=== PATIENT | female | born 1950 | race Caucasian/White ===

== ENCOUNTER → 2016-06-26 | Outpatient (CLI) | payer OTHER ==
[~2016-06-26] MED LIST: ASPIRIN81 MG PO; CALCIUM500 MG PO; COLACE100 MG PO; FLAX OIL1000 MG PO; MAGNESIUM250 M1 PO; MELATONIN5 M1 SL; NASONEX0.05 MG/AC NAS; OMEPRAZOLE20 MG PO; PAXIL40 MG PO; PERCOCET 325 MG1 TA2 PO; POTASSIUM CHELA99 MG PO; VITAMIN B1250 MCG PO; VITAMIN C1000 M1 PO; XANAX0.5 MG PO; [UNRECOGNIZED DRUG - OTHER] PO
== END | disposition home or self-care (01) ==
LOC: MAMMO 11:58
DX: Z12.31 Encounter for screening mammogram for malignant neoplasm of breast (principal); M81.0 Age-related osteoporosis without current pathological fracture; Z78.0 Asymptomatic menopausal state

== ENCOUNTER → 2017-02-14 | Outpatient (CLI) | payer OTHER ==
[2017-02-14 09:42] LABS: BASO % 0.6 % (0.0-1.0); EOS # 0.4 10*3/uL (0.0-0.4); EOS % 8.1 % (1.0-4.0); HEMATOCRIT 40.9 % (37.0-47.0); LYMPH % 41.1 % (27.0-41.0); MEAN CELL VOLUME 87.2 fl (81.0-99.0); MEAN CORPUSCULAR HGB 27.7 pg (27.0-31.0); MEAN CORPUSCULAR HGB CONC 31.8 g/dl (33.0-37.0); MEAN PLATELET VOLUME 9.3 fl (9.6-12.3); MONO # 0.4 10*3/uL (0.1-1.0); MONO % 7.9 % (3.0-9.0); NEUT % 42.1 % (47.0-73.0); PLATELET COUNT AUTOMATED 308 10*3/uL (130-400); RED BLOOD COUNT 4.69 10*6/uL (4.10-5.10); RED CELL DISTRI WIDTH 13.2 % (0-14.5); WHITE BLOOD COUNT 4.8 10*3/uL (4.8-10.8)
[2017-02-14 09:46] LABS: BUN 23 mg/dl (7-24); CHLORIDE 104 mmol/L (98-107); CREATININE 0.89 mg/dL (0.55-1.02); POTASSIUM 4.6 mmol/L (3.5-5.1); SODIUM 139 mmol/L (136-145)
== END | disposition home or self-care (01) ==
LOC: LAB 09:02
PROVIDERS: Internal Medicine
DX: Z13.220 Encounter for screening for lipoid disorders (principal); Z13.21 Encounter for screening for nutritional disorder; Z13.1 Encounter for screening for diabetes mellitus; R53.81 Other malaise

== ENCOUNTER → 2017-09-25 | Day surgery (SDC) | payer OTHER ==
[~2017-09-25] VITALS: Ht 167.6 cm; Wt 77.1 kg
--- NOTE | ~2017-09-25 | O ---
[place], [place] OPERATIVE NOTE NAME: KOKO CHRISTIANSEN UNIT #: [id number] ROOM: DOCTOR: NEVAEH CANNON MD BIRTHDATE: [birth year] DOS: 09/25/2017 GASTROENDOSCOPIC REPORT The patient has presented with severe constipation, undergoing investigation. The patient on Colace 2 tablets a day. She has still difficulty with stooling. PROCEDURE: Today's procedure part of investigation is colonoscopy. PREMEDICATION: Propofol. SCOPE: Olympus folding colonoscope 10L video. REPORT: After putting the patient in left lateral position and application of lubricant to the scope, the scope was introduced. Thereafter, under direct visualization, I advanced through the length of colon and some tortuosity of sigmoid colon experienced. However, this overcame. Base of the cecum explored, appendiceal orifice identified, photographed. Air was suctioned out. The patient was extubated, tolerated the procedure well. IMPRESSION: Tortuous sigmoid colon, possible mechanical hand ring of the stool movement. PLAN AND DISCUSSION: We are going to consider MiraLax to be utilized in addition to correction of diet with high fiber fruit. ACTIVITY: Ad jason. FOLLOWUP: Routinely with you in office, p.r.n. visit with us in [facility]. Follow-up colonoscopy in 10 years unless patient has symptoms for which follow-up should be sooner. Thank you very much indeed. [place], [place] OPERATIVE NOTE NAME: KOKO CHRISTIANSEN UNIT #: [id number] ROOM: DOCTOR: NEVAEH CANNON MD BIRTHDATE: [birth year] NEVAEH CANNON MD CM:OPRECORD:OPERATIVE NOTE [id number] NEVAEH CANNON MD 10/05/17 1742 interface
--- NOTE | ~2017-09-25 | O ---
[place], [place] OPERATIVE NOTE NAME: KOKO CHRISTIANSEN UNIT #: [id number] ROOM: DOCTOR: NEVAEH CANNON MD BIRTHDATE: [birth year] DOS: 09/25/2017 GASTROENDOSCOPIC REPORT INDICATIONS: This is a 67-year-old patient who presented with chief complaint of epigastric distress, dyspepsia, history of severe constipation, stool softeners, Prilosec and Paxil. PAST SURGICAL HISTORY: Cholecystectomy, tonsillectomy, appendectomy. FAMILY HISTORY: Brother with colonic carcinoma. SOCIAL HISTORY: Nonsmoker, nonalcohol consumer. PROCEDURE: Today's procedure part of investigation is colonoscopy and panendoscopy. PREMEDICATION: Versed and propofol. SCOPE: Olympus forward-viewing gastroscope Q10 video. REPORT: After putting the patient in left lateral position and application of lubricant to the scope, the scope was introduced; thereafter, under direct visualization, advanced through the length of esophagus without difficulty into gastric pouch. 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 Biopsy obtained. Small hiatal hernia noticed. Gastric pouch was entered. Gastritis seen. Antral biopsy obtained. Duodenal bulb, second and third part within normal limits. The patient extubated, tolerated procedure well. IMPRESSION: Short segment Khalil esophagus, hiatal hernia, gastritis, status post biopsy. PLAN AND DISCUSSION: Omeprazole 20 mg 1 daily and antireflux elevation of the head of the bed 6 inches all time. Awaiting biopsy results. Furthermore, we are going to proceed with colonoscopic evaluation for constipation. [place], [place] OPERATIVE NOTE NAME: KOKO CHRISTIANSEN UNIT #: [id number] ROOM: DOCTOR: NEVAEH CANNON MD BIRTHDATE: [birth year] NEVAEH CANNON MD CM:OPRECORD:OPERATIVE NOTE 1143 1230 NEVAEH CANNON MD 09/25/17 1228 interface
[2017-09-25 09:45] VITALS: BP 142/70
[2017-09-25 11:34] VITALS: BP 111/59
[2017-09-25 11:45] VITALS: BP 106/57
[2017-09-25 12:00] VITALS: BP 114/58
== END | disposition home or self-care (01) ==
LOC: SDC 09-22 08:00
DX: K29.50 Unspecified chronic gastritis without bleeding (principal); K63.89 Other specified diseases of intestine; K22.8 Other specified diseases of esophagus; K22.70 Barrett's esophagus without dysplasia; K44.9 Diaphragmatic hernia without obstruction or gangrene; F41.9 Anxiety disorder, unspecified; F32.9 Major depressive disorder, single episode, unspecified; Z90.49 Acquired absence of other specified parts of digestive tract

== ENCOUNTER → 2022-08-25 | Outpatient (CLI) | payer OTHER ==
[2022-08-25 11:18] LABS: BASO % 0.7 % (0.0-1.0); EOS # 0.7 10*3/uL (0.0-0.4); EOS % 12.1 % (1.0-4.0); HEMATOCRIT 42.4 % (37.0-47.0); LYMPH # 2.5 10*3/uL (1.3-4.4); LYMPH % 39.9 % (27.0-41.0); MEAN CORPUSCULAR HGB 27.8 pg (27.0-31.0); MEAN CORPUSCULAR HGB CONC 30.9 g/dl (33.0-37.0); MEAN PLATELET VOLUME 8.6 fl (9.6-12.3); MONO # 0.4 10*3/uL (0.1-1.0); MONO % 6.5 % (3.0-9.0); NEUT # 2.5 10*3/uL (2.3-7.9); NEUT % 40.6 % (47.0-73.0); PLATELET COUNT AUTOMATED 341 10*3/uL (130-400); RED BLOOD COUNT 4.71 10*6/uL (4.10-5.10); WHITE BLOOD COUNT 6.1 10*3/uL (4.8-10.8)
[2022-08-25 11:43] LABS: ALKALINE PHOSPHATASE 82 U/L (46-116); BUN 19 mg/dl (9-23); CHLORIDE 101 mmol/L (98-107); CHOLESTEROL 242 mg/dL (<200); FREE T4 0.92 ng/dl (0.89-1.76); LDL CHOLESTEROL 139 mg/dL (9-159); POTASSIUM 4.2 mmol/L (3.4-5.1); SGPT/ALT 18 U/L (10-49); THYROID STIM HORMONE (HS) 1.497 uIU/ml (0.550-4.780); TOTAL PROTEIN 7.4 gm/dL (6.0-8.0); TRIGLYCERIDES 231 mg/dl (<150)
[2022-08-25 11:45] LABS: VITAMIN D, 25-HYDROXY 54.8 ng/mL (30-100)
== END | disposition home or self-care (01) ==
LOC: LAB 10:47
PROVIDERS: ATTEND Internal Medicine
DX: Z13.0 Encounter for screening for diseases of the blood and blood-forming organs and certain disorders involving the immune mechanism (principal); Z13.1 Encounter for screening for diabetes mellitus; Z13.21 Encounter for screening for nutritional disorder; Z13.220 Encounter for screening for lipoid disorders; Z13.228 Encounter for screening for other metabolic disorders; Z13.29 Encounter for screening for other suspected endocrine disorder; Z13.6 Encounter for screening for cardiovascular disorders; Z13.89 Encounter for screening for other disorder; Z13.9 Encounter for screening, unspecified; I10 Essential (primary) hypertension; E78.2 Mixed hyperlipidemia; E11.9 Type 2 diabetes mellitus without complications; E55.9 Vitamin D deficiency, unspecified; E03.9 Hypothyroidism, unspecified

== ENCOUNTER → 2022-08-28 | Outpatient (CLI) | payer OTHER | END | disposition home or self-care (01) | LOC: LAB 12:27 | PROVIDERS: ATTEND Internal Medicine | DX: J98.11 Atelectasis (principal); J98.4 Other disorders of lung; M47.814 Spondylosis without myelopathy or radiculopathy, thoracic region; M41.84 Other forms of scoliosis, thoracic region; M43.8X4 Other specified deforming dorsopathies, thoracic region ==

== ENCOUNTER → 2022-10-13 | Outpatient (CLI) | payer OTHER | END | disposition home or self-care (01) | LOC: RAD 09-26 10:00 | PROVIDERS: ATTEND Internal Medicine | DX: Z78.0 Asymptomatic menopausal state (principal) ==

== ENCOUNTER 2022-11-05 09:56 | Inpatient (IN) | payer OTHER ==
[~2022-11-05] VITALS: Ht 165.1 cm; Wt 78.7 kg
[~2022-11-05 09:56] MED LIST changes: -OMEPRAZOLE20 MG PO; +OMEPRAZOLE40 MG PO
[2022-11-05 10:02] VITALS: BP 134/63
[2022-11-05] MEDS ORDERED: SYMB80 INH (10:05)
[2022-11-05 10:49] LABS: BASO % 0.6 % (0.0-1.0); EOS # 0.8 10*3/uL (0.0-0.4); EOS % 11.6 % (1.0-4.0); HEMATOCRIT 44.4 % (37.0-47.0); LYMPH # 2.4 10*3/uL (1.3-4.4); LYMPH % 37.5 % (27.0-41.0); MEAN CELL VOLUME 85.2 fl (81.0-99.0); MEAN CORPUSCULAR HGB 27.8 pg (27.0-31.0); MEAN CORPUSCULAR HGB CONC 32.7 g/dl (33.0-37.0); MEAN PLATELET VOLUME 8.8 fl (9.6-12.3); MONO # 0.5 10*3/uL (0.1-1.0); NEUT # 2.7 10*3/uL (2.3-7.9); NEUT % 42.1 % (47.0-73.0); PLATELET COUNT AUTOMATED 355 10*3/uL (130-400); RED BLOOD COUNT 5.21 10*6/uL (4.10-5.10); RED CELL DISTRI WIDTH 13.3 % (0-14.5); WHITE BLOOD COUNT 6.5 10*3/uL (4.8-10.8)
[2022-11-05 11:02] LABS: INTERNATIONAL NORM RATIO 1.1 (2.0-3.5)
[2022-11-05 11:13] LABS: ALKALINE PHOSPHATASE 87 U/L (46-116); BUN 15 mg/dl (9-23); CHLORIDE 105 mmol/L (98-107); LIPASE 42 U/L (12-53); POTASSIUM 3.8 mmol/L (3.4-5.1); SGPT/ALT 21 U/L (10-49); TOTAL PROTEIN 7.5 gm/dL (6.0-8.0)
[2022-11-05 19:17] VITALS: BP 131/65
[2022-11-05 20:06] VITALS: BP 134/65
[2022-11-05 23:45] LABS: BILIRUBIN Negative (Negative); BLOOD Negative (Negative); CLARITY Clear (Clear); COLOR Yellow (Yellow); GLUCOSE Negative (Negative); KETONE Negative (Negative); LEUKO ESTERASE Negative (Negative); NITRITE Negative (Negative); PH 6.5 (4.5-8.0); SPECIFIC GRAVITY <= 1.005 (1.001-1.030); UROBILINOGEN 0.2 E.U./dl (0.0-1.0)
[2022-11-06] VITALS: BP 130/59; BP 132/69
[2022-11-06 00:02] LABS: WBC 0-2 wbc/hpf (0-5)
[2022-11-06 05:57] LABS: BUN 15 mg/dl (9-23); CHLORIDE 107 mmol/L (98-107)
[2022-11-06 06:18] LABS: BASO % 0.5 % (0.0-1.0); EOS # 0.8 10*3/uL (0.0-0.4); HEMATOCRIT 42.1 % (37.0-47.0); LYMPH # 2.6 10*3/uL (1.3-4.4); LYMPH % 39.5 % (27.0-41.0); MEAN CELL VOLUME 87.7 fl (81.0-99.0); MEAN CORPUSCULAR HGB 27.9 pg (27.0-31.0); MEAN CORPUSCULAR HGB CONC 31.8 g/dl (33.0-37.0); MONO # 0.6 10*3/uL (0.1-1.0); MONO % 9.1 % (3.0-9.0); NEUT # 2.5 10*3/uL (2.3-7.9); NEUT % 38.9 % (47.0-73.0); PLATELET COUNT AUTOMATED 329 10*3/uL (130-400); RED CELL DISTRI WIDTH 13.3 % (0-14.5); WHITE BLOOD COUNT 6.5 10*3/uL (4.8-10.8)
[2022-11-06 08:00] VITALS: BP 117/52
[2022-11-06 12:00] VITALS: BP 125/54
[2022-11-06 16:00] VITALS: BP 107/61
[2022-11-06 20:00] VITALS: BP 145/62
[2022-11-07] VITALS: BP 126/50
[2022-11-07 08:00] VITALS: BP 133/52
[2022-11-07 12:00] VITALS: BP 127/48
== END 2022-11-07 18:02 | disposition home or self-care (01) | DRG 392 ==
LOC: ED 09:56 → EDHOLD 14:10 → 4E 14:10
PROVIDERS: Emergency Medicine; ADMIT Internal Medicine; ATTEND Internal Medicine
DX: A08.4 Viral intestinal infection, unspecified (principal); F33.0 Major depressive disorder, recurrent, mild; J45.41 Moderate persistent asthma with (acute) exacerbation; F41.1 Generalized anxiety disorder; F51.01 Primary insomnia; E86.0 Dehydration; Z88.1 Allergy status to other antibiotic agents; Z83.3 Family history of diabetes mellitus; Z90.49 Acquired absence of other specified parts of digestive tract; Z98.42 Cataract extraction status, left eye

== ENCOUNTER → 2022-12-10 | Outpatient (CLI) | payer OTHER ==
[~2022-12-10] MED LIST changes: +SYMB80 INH
[2022-12-10 11:56] LABS: BASO % 0.7 % (0.0-1.0); EOS # 0.3 10*3/uL (0.0-0.4); EOS % 4.6 % (1.0-4.0); HEMATOCRIT 40.8 % (37.0-47.0); LYMPH # 2.5 10*3/uL (1.3-4.4); LYMPH % 43.3 % (27.0-41.0); MEAN CELL VOLUME 88.7 fl (81.0-99.0); MEAN CORPUSCULAR HGB 27.8 pg (27.0-31.0); MEAN CORPUSCULAR HGB CONC 31.4 g/dl (33.0-37.0); MEAN PLATELET VOLUME 8.6 fl (9.6-12.3); MONO # 0.4 10*3/uL (0.1-1.0); MONO % 7.2 % (3.0-9.0); NEUT # 2.5 10*3/uL (2.3-7.9); PLATELET COUNT AUTOMATED 319 10*3/uL (130-400); RED CELL DISTRI WIDTH 14.1 % (0-14.5); WHITE BLOOD COUNT 5.7 10*3/uL (4.8-10.8)
== END | disposition home or self-care (01) ==
LOC: LAB 11:22
PROVIDERS: ATTEND Nurse Practitioner Family
DX: Z01.812 Encounter for preprocedural laboratory examination (principal); F33.1 Major depressive disorder, recurrent, moderate

== ENCOUNTER → 2023-01-28 | Outpatient (CLI) | payer OTHER | END | disposition home or self-care (01) | LOC: MAMMO 07:30 | PROVIDERS: ATTEND Internal Medicine | DX: Z12.31 Encounter for screening mammogram for malignant neoplasm of breast (principal) ==

== ENCOUNTER 2023-07-07 11:29 | Emergency (ER) | payer OTHER ==
[~2023-07-07] VITALS: Ht 165.1 cm; Wt 78.0 kg
[2023-07-07 12:01] LABS: BASO % 0.6 % (0.0-1.0); EOS # 0.4 10*3/uL (0.0-0.4); EOS % 6.1 % (1.0-4.0); HEMATOCRIT 44.7 % (37.0-47.0); LYMPH % 27.9 % (27.0-41.0); MEAN CELL VOLUME 88.7 fl (81.0-99.0); MEAN CORPUSCULAR HGB 27.2 pg (27.0-31.0); MEAN CORPUSCULAR HGB CONC 30.6 g/dl (33.0-37.0); MEAN PLATELET VOLUME 8.5 fl (9.6-12.3); MONO # 0.5 10*3/uL (0.1-1.0); MONO % 6.9 % (3.0-9.0); NEUT # 4.3 10*3/uL (2.3-7.9); NEUT % 58.4 % (47.0-73.0); PLATELET COUNT AUTOMATED 357 10*3/uL (130-400); RED BLOOD COUNT 5.04 10*6/uL (4.10-5.10); RED CELL DISTRI WIDTH 13.2 % (0-14.5); WHITE BLOOD COUNT 7.3 10*3/uL (4.8-10.8)
[2023-07-07 12:15] LABS: ACT PARTIAL THROMBO TIME 27.5 SECONDS (20.0-32.1)
[2023-07-07 12:22] LABS: ALKALINE PHOSPHATASE 96 U/L (46-116); BUN 17 mg/dl (9-23); CHLORIDE 104 mmol/L (98-107); POTASSIUM 4.4 mmol/L (3.4-5.1); SGPT/ALT 14 U/L (5-49); TOTAL PROTEIN 7.6 gm/dL (6.0-8.0)
[2023-07-07] MEDS ORDERED: IOHEXOL 350 MG/ML 100 ML VIAL IV ONE (14:40)
[2023-07-07] MEDS ORDERED: SODIUM CHLORIDE 0.9% 100 ML BAG IV ONE (14:40)
[2023-07-07] MEDS ORDERED: AMOX-CLAV 875-1 EACH PO (16:54)
== END 2023-07-07 17:05 | disposition home or self-care (01) ==
LOC: ED 11:29
PROVIDERS: Internal Medicine
DX: J01.90 Acute sinusitis, unspecified (principal); Z20.822 Contact with and (suspected) exposure to COVID-19; R42 Dizziness and giddiness; Z88.1 Allergy status to other antibiotic agents; Z79.899 Other long term (current) drug therapy; Z79.82 Long term (current) use of aspirin; Z90.49 Acquired absence of other specified parts of digestive tract; Z98.890 Other specified postprocedural states

== ENCOUNTER → 2023-10-22 | Outpatient (CLI) | payer OTHER ==
[~2023-10-22] MED LIST changes: +AMOX-CLAV 875-1 EACH PO
[2023-10-22 13:55] LABS: BASO % 0.3 % (0.0-1.0); EOS # 0.4 10*3/uL (0.0-0.4); EOS % 6.5 % (1.0-4.0); HEMATOCRIT 40.6 % (37.0-47.0); LYMPH # 2.1 10*3/uL (1.3-4.4); LYMPH % 31.9 % (27.0-41.0); MEAN CELL VOLUME 86.2 fl (81.0-99.0); MEAN CORPUSCULAR HGB CONC 32.5 g/dl (33.0-37.0); MEAN PLATELET VOLUME 8.6 fl (9.6-12.3); MONO # 0.4 10*3/uL (0.1-1.0); MONO % 6.5 % (3.0-9.0); NEUT # 3.6 10*3/uL (2.3-7.9); NEUT % 54.2 % (47.0-73.0); PLATELET COUNT AUTOMATED 327 10*3/uL (130-400); RED BLOOD COUNT 4.71 10*6/uL (4.10-5.10); RED CELL DISTRI WIDTH 13.6 % (0-14.5); WHITE BLOOD COUNT 6.6 10*3/uL (4.8-10.8)
[2023-10-22 14:26] LABS: ALKALINE PHOSPHATASE 94 U/L (46-116); BUN 21 mg/dl (9-23); CHLORIDE 103 mmol/L (98-107); CHOLESTEROL 242 mg/dL (<200); FREE T4 0.95 ng/dl (0.89-1.76); LDL CHOLESTEROL 148 mg/dL (9-159); POTASSIUM 4.1 mmol/L (3.4-5.1); SGPT/ALT 19 U/L (5-49); TOTAL PROTEIN 7.3 gm/dL (6.0-8.0); TRIGLYCERIDES 208 mg/dl (<150)
[2023-10-22 14:28] LABS: VITAMIN D, 25-HYDROXY 63.1 ng/mL (30-100)
== END | disposition home or self-care (01) ==
LOC: LAB 13:29
PROVIDERS: ATTEND Internal Medicine
DX: M47.816 Spondylosis without myelopathy or radiculopathy, lumbar region (principal); E78.2 Mixed hyperlipidemia; R07.9 Chest pain, unspecified; J45.40 Moderate persistent asthma, uncomplicated

== ENCOUNTER → 2023-10-28 | Outpatient (CLI) | payer OTHER | END | disposition home or self-care (01) | LOC: LAB 10:13 | PROVIDERS: ATTEND Internal Medicine | DX: E11.9 Type 2 diabetes mellitus without complications (principal) ==

== ENCOUNTER → 2024-03-29 | Outpatient (CLI) | payer OTHER ==
[2024-03-29 11:41] LABS: CHOLESTEROL 270 mg/dL (<200); LDL CHOLESTEROL 164 mg/dL (9-159); TRIGLYCERIDES 215 mg/dl (<150)
== END | disposition home or self-care (01) ==
LOC: LAB 10:55
PROVIDERS: ATTEND Internal Medicine
DX: M13.812 Other specified arthritis, left shoulder (principal); M25.512 Pain in left shoulder; E78.2 Mixed hyperlipidemia; R73.9 Hyperglycemia, unspecified

== ENCOUNTER → 2024-12-21 | Outpatient (CLI) | payer OTHER ==
[2024-12-21 13:41] LABS: BASO # 0.0 10*3/uL (0.0-0.1); BASO % 0.6 % (0.0-1.0); EOS # 0.4 10*3/uL (0.0-0.4); EOS % 5.9 % (1.0-4.0); MEAN CELL VOLUME 87.2 fl (81.0-99.0); MEAN CORPUSCULAR HGB 27.6 pg (27.0-31.0); MEAN PLATELET VOLUME 8.5 fl (9.6-12.3); MONO # 0.6 10*3/uL (0.1-1.0); MONO % 8.1 % (3.0-9.0); NEUT # 2.9 10*3/uL (2.3-7.9); NEUT % 43.0 % (47.0-73.0); NUCLEATED RED BLOOD CELL 0.0 % (0.0-0.0); NUCLEATED RED BLOOD CELL 0.0 10*3/uL (0.0-0.0); PLATELET COUNT AUTOMATED 339 10*3/uL (130-400); RED CELL DISTRI WIDTH 14.0 % (0-14.5)
[2024-12-21 14:35] LABS: BUN 22 mg/dl (9-23); FREE T4 1.10 ng/dl (0.89-1.76); LDL CHOLESTEROL 105 mg/dL (9-159); SGPT/ALT 26 U/L (5-49); VITAMIN D, 25-HYDROXY 53.5 ng/mL (30-100)
== END | disposition home or self-care (01) ==
LOC: LAB 13:26
PROVIDERS: ATTEND Internal Medicine
DX: M79.671 Pain in right foot (principal); M25.511 Pain in right shoulder; R73.9 Hyperglycemia, unspecified; E78.2 Mixed hyperlipidemia; E53.9 Vitamin B deficiency, unspecified; E55.9 Vitamin D deficiency, unspecified; R53.83 Other fatigue